=== PATIENT | male | born 1965 | race Caucasian/White ===

== ENCOUNTER 2024-12-24 06:25 | Day surgery (SDC) | payer OTHER, SELFPAY | END 2024-12-24 12:15 | disposition home or self-care (01) | LOC: GI 06:25 | PROVIDERS: ATTENDING PHYSICIAN Internal Medicine | DX: Z12.11 Encounter for screening for malignant neoplasm of colon (principal); K57.30 Diverticulosis of large intestine without perforation or abscess without bleeding; K64.8 Other hemorrhoids; Z83.710 Family history of adenomatous and serrated polyps; K63.5 Polyp of colon | CPT/HCPCS: 45385; 88305 ==